=== PATIENT | male | born 1970 | race African-American/Black ===

== ENCOUNTER 2017-08-31 22:35 | Emergency (ER) | payer SELFPAY ==
[~2017-08-31] VITALS: Ht 172.7 cm; Wt 68.0 kg
[2017-08-31 22:51] VITALS: BP 140/70
== END 2017-09-01 01:40 | disposition left against medical advice (07) ==
LOC: ER 23:22
DX: S00.212A Abrasion of left eyelid and periocular area, initial encounter (principal); Z53.21 Procedure and treatment not carried out due to patient leaving prior to being seen by health care provider; W18.40XA Slipping, tripping and stumbling without falling, unspecified, initial encounter; Y93.89 Activity, other specified; Y92.89 Other specified places as the place of occurrence of the external cause; Y99.8 Other external cause status